=== PATIENT | female | born 1995 | race Caucasian/White ===

== ENCOUNTER → 2017-04-29 02:35 | Emergency (ER) | payer OTHER ==
[2017-04-29 05:25] LABS: Hematocrit 40 % (35-47); Hemoglobin 13.4 g/dl (12.0-16.0); Mean Corpuscular HGB Conc 33 g/dl (31-36); Mean Corpuscular Hemoglobin 29 pg (27-31); Mean Corpuscular Volume 88 fL (80-97); Mean Platelet Volume 9 um3 (7.4-10.4); Red Blood Count 4.58 10^6/ul (4.0-5.4); Red Cell Distribution Width 13 % (10.5-15); White Blood Count 9.1 10^3/ul (3.5-10.8)
[2017-04-29 05:38] LABS: Acetaminophen < 15 mcg/mL; Alcohol < 10 mg/dL (<10); Salicylate < 2.50 mg/dL (<30)
[2017-04-29 05:40] LABS: ALT 10 U/L (7-52); AST 18 U/L (13-39); Albumin 4.2 g/dL (3.2-5.2); Alkaline Phosphatase 53 U/L (34-104); Anion Gap 7 mmol/L (2-11); BUN/Creatinine Ratio 11.9 (8-20); Blood Urea Nitrogen 8 mg/dL (6-24); CO2 Carbon Dioxide 22 mmol/L (22-32); Calcium 9.7 mg/dL (8.6-10.3); Chloride 108 mmol/L (101-111); EGFR African American 145.8 (>60); EGFR Non-African American 113.4 (>60); Globulin 3.4 g/dL (2-4); Glucose 105 mg/dL (70-100); Potassium 3.6 mmol/L (3.5-5.0); Sodium 137 mmol/L (133-145); Total Protein 7.6 g/dL (6.4-8.9)
[2017-04-29 05:48] LABS: TSH (Thyroid Stimulating Horm) 2.67 mcIU/mL (0.34-5.60)
[2017-04-29 05:56] LABS: Urine Bilirubin Negative (Negative); Urine Glucose Negative (Negative); Urine Nitrite Negative (Negative)
[2017-04-29 06:05] LABS: Benzodiazepine Urine Screen None Detected (None Detect)
--- NOTE | 2017-04-29 06:22 | ED ---
Chaparro Fay Rebecca, scribed for Andres Ruvalcaba on 04/29/17 at 0512 . Psychiatric Complaint - HPI Summary HPI Summary: Pt is a 21 y/o F who presents to ED c/o intermittent anxiety since about 0200 upon waking up. Reports she woke up feeling panicked and since then, every time she tried to fall asleep, she will wake up feeling palpitations, "stress" with SOB and anxiety. Denies SIs, hallucinations, paranoia and abdominal pain. No prior similar episodes with no PMHx psychiatric problems. Has attended therapy in the past, without a definitive Dx. Notes accidentally doubling her typical caffeine intake today at midnight. - History Of Current Complaint Chief Complaint: EDMentalHealth Time Seen by Provider: 04/29/17 05:04 Hx Obtained From: Patient Onset/Duration: Still Present Timing: Intermittent Episode Lasting Character: Anxious - Allergies/Home Medications Allergies/Adverse Reactions: Allergies Allergy/AdvReac Type Severity Reaction Status Date / Time No Known Allergies Allergy Verified 04/29/17 02:38 PMH/Surg Hx/FS Hx/Imm Hx Previously Healthy: Yes Endocrine/Hematology History: Denies: Hx Diabetes Cardiovascular History: Denies: Hx Hypertension Infectious Disease History: No Infectious Disease History: Denies: Traveled Outside the [place] in Last 30 Days - Family History Known Family History: Positive: Cardiac Disease, Hypertension, Other - HLD, colon CA - Social History Occupation: Student Alcohol Use: None Substance Use Type: Reports: None Smoking Status (MU): Never Smoked Tobacco Review of Systems Positive: Palpitations Positive: Shortness Of Breath Negative: Abdominal Pain Positive: Anxious, Other - "stress"; NEGATIVE: SIs, hallucinations, paranoia All Other Systems Reviewed And Are Negative: Yes Physical Exam - Summary Physical Exam Summary: Appearance: Well appearing, no pain distress Skin: warm, dry, reflects adequate perfusion Head/face: normal Eyes: EOMI, DENIS ENT: normal Neck: supple, nontender Respiratory: CTA, breath sounds present Cardiovascular: RRR, pulses symmetrical Abdomen: nontender, soft Bowel: present Musculoskeletal: normal, strength/ROM intact Neuro: normal, sensory motor intact, A&Ox3 Psych: Anxious Triage Information Reviewed: Yes Vital Signs On Initial Exam: Initial Vitals Temp Pulse Resp BP Pulse Ox 98.4 F 77 16 127/64 98 04/29/17 02:36 04/29/17 02:36 04/29/17 02:36 04/29/17 02:36 04/29/17 02:36 Vital Signs Reviewed: Yes Diagnostics - Vital Signs Vital Signs Temp Pulse Resp BP Pulse Ox 04/29/17 02:36 98.4 F 77 16 127/64 98 - Laboratory Result Diagrams: 04/29/17 05:14 04/29/17 05:14 Lab Statement: Any lab studies that have been ordered have been reviewed, and results considered in the medical decision making process. - Radiology CXR Xray Interpretation: No Acute Changes Radiology Interpretation Completed By: ED Physician - EKG 0542 Cardiac Rate: NL - 73 bpm EKG Rhythm: Sinus Rhythm EKG Interpretation: No acute changes Course/Dx - Course Assessment/Plan: Pt is a 21 y/o F who presents to ED c/o intermittent anxiety since about 0200 upon waking up. Reports she woke up feeling panicked and since then, every time she tried to fall asleep, she will wake up feeling palpitations , "stress" with SOB and anxiety. Denies SIs, hallucinations, paranoia and abdominal pain. No prior similar episodes with no PMHx psychiatric problems. Has attended therapy in the past, without a definitive Dx. Notes accidentally doubling her typical caffeine intake today at midnight. CXR reveals no acute findings. EKG is sinus rhythm with no acute changes. Medically cleared for [facility] at 0617. Pt will be signed out, pending disposition, awaiting [facility]. - Differential Dx/Clinical Impression Provider Diagnosis: Anxiety Discharge - Discharge Plan Condition: Stable Disposition: OTHER Discharge Disposition Comment: Pt will be signed out, pending disposition, awaiting [facility]. The documentation as recorded by the Chaparro maravilla Rebecca accurately reflects the service I personally performed and the decisions made by , Andres Ruvalcaba.
--- NOTE | 2017-04-29 09:07 | RAD ---
Indication: Shortness of breath. 2 views of the chest including dual energy PA views demonstrate no mediastinal shift. Hyperinflated lung zelaya are noted. No alveolar consolidation is noted. IMPRESSION: No active cardiopulmonary disease is noted.
[2017-04-29 12:07] VITALS: BP 118/70
== END ==
LOC: ED 02:35
DX: F41.9 Anxiety disorder, unspecified (principal); R06.02 Shortness of breath
CPT/HCPCS: 36415; 71020; 80053; 80307; 80320; 80329; 81003; 84443; 84702; 85025; 85379; 93005; 99283; G0480